=== PATIENT | male | born 1970 | race Caucasian/White ===

== ENCOUNTER → 2022-05-01 09:15 | Outpatient (BNVA) | payer OTHER, SELFPAY | PROVIDERS: Visit Provider Physician Assistant | DX: M77.12 Lateral epicondylitis, left elbow (principal) | CPT/HCPCS: 20551; 99202; J1020 ==

== ENCOUNTER 2023-03-04 14:09 | Outpatient (REF) | payer OTHER, SELFPAY ==
[2023-03-04 17:08] LABS: MANUAL DIFF FLAG NO
[2023-03-04 17:17] LABS: Basophils Percent Auto 0.6 % (0-2); Eosinophils Absolute Auto 0.1 X10*3/uL (0.0-0.4); Hematocrit 42.3 % (42.0-52.0); Hemoglobin 13.3 g/dl (14.0-18.0); Imm Gran Abs Auto 0.01 X10*3/uL (0.00-0.03); Imm Gran Pct Auto 0.1 % (0.0-0.4); Lymphocytes Absolute Auto 1.9 X10*3/uL (1.2-4.9); Lymphocytes Percent Auto 26.5 % (20-40); Mean Corpuscular HGB Conc 31.4 g/dl (31.0-36.0); Mean Corpuscular Hemoglobin 27.8 pg (27.0-33.0); Mean Corpuscular Volume 88.5 fL (80.0-98.0); Mean Platelet Volume 11.1 fL (9.4-12.4); Monocytes Absolute Auto 0.4 X10*3/uL (0.1-1.2); Monocytes Percent Auto 6.1 % (2-11); Neutrophils Absolute Auto 4.7 x10*3/uL (2.0-8.3); Neutrophils Percent Auto 65.7 % (45-73); Platelet Count 224 X10*3/uL (160-400); Red Blood Count 4.78 X10*6/uL (4.60-5.80); Red Cell Distribution Width 11.9 % (11.0-16.0); White Blood Count 7.2 X10*3/uL (4.8-10.8)
[2023-03-04 17:19] LABS: C Reactive Protein < 0.10 mg/dL (< or = 0.50)
[2023-03-04 17:21] LABS: Rheumatoid Factor < 13.0 IU/mL (<15.0)
[2023-03-04 18:01] LABS: Erythrocyte Sedimentation Rate 2 MM/HR (0-15)
== END 2023-03-04 14:10 | disposition home or self-care (01) ==
LOC: HO.CHCLDS 14:09
PROVIDERS: Visit Provider Pediatrics
DX: M25.562 Pain in left knee (principal)
CPT/HCPCS: 36415; 85025; 85652; 86140; 86431

== ENCOUNTER 2023-08-09 09:48 | Outpatient (REF) | payer MEDICARE, SELFPAY ==
[2023-08-09 14:41] LABS: Iron 82 mcg/dL (45-160); Percent Iron Saturation 28 % (15-50); Total Iron Binding Capacity 291 mcg/dL (228-428); Unsaturated Iron Binding 209 ug/dL
[2023-08-09 14:49] LABS: Ferritin 79 ng/mL (20-250)
[2023-08-12 11:04] LABS: Follicle Stimulating Hormone 73.2 mIU/mL (1.4-12.8); Prolactin Undiluted 10.2 ng/mL (2.0-18.0)
[2023-08-13 16:12] LABS: Testosterone, Total 316 ng/dL (250-1100)
== END 2023-08-09 09:49 | disposition home or self-care (01) ==
LOC: HO.CHCLDS 09:48
PROVIDERS: Visit Provider Pediatrics
DX: E29.1 Testicular hypofunction (principal)
CPT/HCPCS: 36415; 82728; 83001; 83540; 84146; 84403

== ENCOUNTER 2024-03-16 10:04 | Outpatient (REF) | payer OTHER, SELFPAY | END 2024-03-16 10:05 | disposition home or self-care (01) | LOC: HO.HOSX 10:04 | PROVIDERS: Visit Provider Physician Assistant | DX: Z13.89 Encounter for screening for other disorder (principal) ==

== ENCOUNTER 2024-03-17 08:44 | Outpatient (REF) | payer OTHER, SELFPAY ==
--- OUTSIDE RECORDS SUMMARY | 2024-03-20 08:52 | XMS_ITS | Data Portability ---
Author Organization [place] - [employer] Address [address] [place] [address] Assessment No assessment recorded. Plan of Treatment [...] Not available Not available Not available 02/01/2024 05668 05 SNOMED Not Available [facility] - production [...] Diagnosis/Indication Diagnosis SNOMED-CT Code Diagnosis ICD10 Code [id number] Juan Pierce MD Main - [address] [address] 04/16/2023 14:08:31 04/19/2023 17:27:04 Pain of left knee joint [id number] 46397 M25.562 Health Concerns Section Related Observation LastModified by Organization Detai ls LastModified Time None Recorded Concern Status LastModified by Organization Details LastModified Time None Recorded Advance Directives Directive None Recorded Payers Encounter Date Sequence Insurance Name Policy Number Policy Rivas Covered Member ID Rivas Member ID Guarantor Name 04/16/2023 1 [facility] - DOS ON OR AFTER 2022 - DUAL ELIGIBLE - RETIREMENT OPTIONS AND ONE CARE (MEDICARE REPLACEMENT/ADV ANTAGE - HMO) Terry Menjivar [id number] Terry Menjivar Notes Date Note Type Note Provider Name and Address Organization Details Recorded Time 04/16/2023 text/html HPI: Asthma, GERD,underweight osteoarthritis. .................. .................. .................. .................. .................. .................. .................. ............... [facility] Nurse Triage Notes (Jaci Fonseca): Comments: No further information needed to process visit. .................. .................. .................. .................. .................. .................. .................. ............... Project Administrative Assistant Note From Salty Ly: Left knee pain [...] ............... Disposition: Fulfilled Juan Pierce MD [address] [facility],[address], [place], [address], ESTHELA CAMERON 04/16/2023 14:53:34
== END 2024-03-17 08:45 | disposition home or self-care (01) ==
LOC: HO.HOSX 08:44
PROVIDERS: Visit Provider Physician Assistant
DX: M25.569 Pain in unspecified knee (principal); M25.662 Stiffness of left knee, not elsewhere classified; M17.12 Unilateral primary osteoarthritis, left knee
CPT/HCPCS: 73560; 73562; 99212

== ENCOUNTER 2024-03-17 09:12 | Outpatient (AMB) | payer OTHER, SELFPAY ==
--- OUTSIDE RECORDS SUMMARY | 2024-03-17 09:16 | XMS_ITS | Data Portability ---
Author Organization [place] - [employer] [place] [employer] ([email or web address]) Address [address] [place] [address] Assessment No assessment recorded. Plan of Treatment Reminders Order Date Submit Date Provider Last Modified By Organization Details Last Modified Time Details Appointments None recorded. Lab None recorded. Referral None recorded. Procedures None recorded. Surgeries None recorded. Imaging None recorded. Medication Orders ketorolac 15 mg/mL injection solution 2023 024 pjansson Not available 4 14:19:10 Patient TargetsNo targets recorded. Patient InstructionsNo instructions recorded. Reason for Referral None Reported. Medical Equipment None Reported. Allergies Allergen ID Allergen Name Allergen Category Reaction Reaction Severity Criticality Documentation Date Start Date Code Code System Note Provider Name and Address Organization Details Recorded Time 8083 ciproflox acin medicatio n Not available Not available Not available 02/01/2024 2551 RxNorm Not Available [facility] - production 4 03:41:50 8084 Medicinal product containin g penicilli n and acting as antibacte rial agent (product) medicatio n Not available Not available Not available 02/01/2024 22456 05 SNOMED Not Available [facility] - production 4 03:41:50 8085 aspirin medicatio n Not available Not available Not available 02/01/2024 1191 RxNorm Not Available [facility] - production 4 03:41:50 Medications Name Sig Start Date Stop Date Status Note LastModified by Organization Details LastModified Time medbox status USE DIRECTED active Not Available Not Available No t Available ketorolac 15 mg/mL injection solution Inject 1 mL by intramuscul ar route. 2023 active Not Available Not Available Not Avai lable prednisone 10 mg tablet TAKE 4 TABLETS BY MOUTH ONCE DAILY active Not Available Not Available No t Available albuterol sulfate 2.5 mg/3 mL (0.083 %) solution for nebulization INHALE THE CONTENT OF 1 VIAL (3mls) VIA nebulizer EVERY 6 HOURS NEEDED FOR SHORTNESS OF BREATH OR FOR WHEEZING active Not Available Not Available No t Available cefpodoxime 100 mg tablet TAKE 1 TABLET BY MOUTH TONIGHT (08/07) AT 9PM, THEN TOMORROW (08/08) TAKE 1 TABLET AT 9AM AND 1 TABLET AT 9PM. MAY TAKE WITH YOGURT TO LESSEN STOMACH UPSET active Not Available Not Available No t Available tizanidine 4 mg tablet TAKE 1 TABLET BY MOUTH EVERY 8 HOURS NEEDED FOR SPASMS active Not Available Not Available No t Available meloxicam 15 mg tablet TAKE 1 TABLET BY MOUTH ONCE DAILY NEEDED FOR PAIN take with food active Not Available Not Available No t Available alendronate 70 mg tablet TAKE ONE TABLET ON ONCE WEEKLY WEDNESDAY MORNING (TAKE 1 TABLET ONCE A WEEK WITH 6 TO 8 OZ OF WATER 30 MINUTES BEFORE FIRST FOOD OF THE DAY. DO NOT LIE DOWN FOR 30 MINUTES.) active Not Available Not Available No t Available tramadol 50 mg tablet TAKE ONE TABLET AT BEDTIME active Not Available Not Available No t Available acetaminophe n ER 650 mg tablet,exten ded release TAKE ONE TABLET EVERY 8 HOURS NEEDED MILD PAIN active Not Available Not Available No t Available calcium 600 mg (as calcium carbonate 1,500 mg) tablet TAKE ONE TABLET DAILY AT NOON active Not Available Not Available No t Available methocarbamo l 750 mg tablet TAKE ONE TABLET FOUR TIMES DAILY active Not Available Not Available Not Available Banophen 25 mg tablet TAKE ONE TABLET BY MOUTH EVERY 8 HOURS NEEDED FOR ITCHING OR ALLERGIES active Not Available Not Available No t Available omeprazole 20 mg capsule,shyann yed release TAKE ONE CAPSULE IN THE MORNING AND EVENING BEFORE MEALS active Not Available Not Available No t Available montelukast 10 mg tablet TAKE 1 TABLET BY MOUTH ONCE DAILY IN THE EVENING active Not Available Not Available Not Available epinephrine 0.3 mg/0.3 mL injection, auto-injecto r INJECT INTRAMUSCUL SUNNY DIRECTED ON PACKAGE active Not Available Not Available No t Available albuterol sulfate HFA 90 mcg/actuatio n aerosol inhaler INHALE TWO PUFFS BY MOUTH 4 (FOUR) TIMES DAILY NEEDED FOR WHEEZING active Not Available Not Available No t Available Vitamin D3 25 mcg (1,000 unit) tablet TAKE 1 TABLET BY MOUTH ONCE DAILY active Not Available Not Available No t Available Breo Ellipta 200 mcg-25 mcg/dose powder for inhalation INHALE 1 PUFF BY MOUTH ONCE DAILY active Not Available Not Available No t Available Spiriva Respimat 1.25 mcg/actuatio n solution for inhalation INHALE TWO PUFFS BY MOUTH ONCE DAILY active Not Available Not Available No t Available Vitals Date Recorded Respiratory rate Oxygen saturation Oxygen saturation in Arterial blood by Pulse oximetry Body temperature Heart rate Systolic blood pressure Diastolic blood pressure Provider Name and Address Organization Details Last Updated DateTime 4 18 /min 96 % 96 % 98.4 [degF] 70 /min 144 mm[Hg] 80 mm[Hg] Not Available [facility] - production 4 14:08:33 Social History None recorded. Functional Status None recorded. Mental Status None recorded. Family History Nothing Reported. Medical History No medical history recorded. Past Encounters Encounter ID Performer Location Encounter Start Date Encounter Closed Date Diagnosis/Indication Diagnosis SNOMED-CT Code Diagnosis ICD10 Code [id number] Juan Pierce MD Main - [address] [address] 04/16/2023 14:08:31 04/19/2023 17:27:04 Pain of left knee joint [id number] 70621 M25.562 Health Concerns Section Related Observation LastModified by Organization Detai ls LastModified Time None Recorded Concern Status LastModified by Organization Details LastModified Time None Recorded Advance Directives Directive None Recorded Payers Encounter Date Sequence Insurance Name Policy Number Policy Rivas Covered Member ID Rivas Member ID Guarantor Name 04/16/2023 1 [facility] - DOS ON OR AFTER 2022 - DUAL ELIGIBLE - [employer] OPTIONS AND ONE CARE (MEDICARE REPLACEMENT/ADV ANTAGE - HMO) Terry Menjivar [id number] Terry Menjivar Notes Date Note Type Note Provider Name and Address Organization Details Recorded Time 04/16/2023 text/html HPI: Asthma, GERD,underweight osteoarthritis. .................. .................. .................. .................. .................. .................. .................. ............... [facility] Nurse Triage Notes (Jaci Fonseca): Comments: No further information needed to process visit. .................. .................. .................. .................. .................. .................. .................. ............... Surgery Scheduling Coordinator Note From Salty Ly: Left knee pain for about 2-3 months ago, without trauma or known cause. No edema noted, pain is localize to the left knee and does not radiate. No redness, edema, or discoloring noted. Ice compressions only help minimal with pain. Pt describes the pain as a burning hot pain, again, does not feel warm to the touch. Pt has full movement of the knee, able to extend to 180 and flex below 90 degrees. Pt is slow to move the knee, and does seem to cause a lot of pain with movement and without. Pain worsens at night. Tylenol last dose was yesterday night, 500mg. Meloxicam was yesterday without relief, and no ibuprophen has been taken (gets stomach pain from ). Pt does have a PCP, but did not Rx anything for the pain. MD consult agreed with 15mg of Toradol, IM. Instructed Pt to not take NSAIDs, i.e. ibuprofen or his Meloxicam, for the remainder of today. Advised heat and or cold. Discussed how to properly use ice, and never directly on the skin. Discussed red flags with pt and family. Advised to seek orthopedic consult. Daughter making an appointment. .................. .................. .................. .................. .................. .................. .................. ............... Disposition: Fulfilled Juan Pierce MD [address] [facility],[address], [place], [address], ESTHELA CAMERON 04/16/2023 14:53:34
--- NOTE | 2024-03-17 09:22 | MHC.OFFVIS ---
Intake Visit Reasons: New prob- Left knee pain Intake Note: Terry is a 53 year old male who presents today for a evaluation of his left knee pain. Pt denies any previous injury,treatment, or Surgery. Patient reports ongoing/ off and on pain for about 3-4 years. He states that his pain is on the back side of his knee and aorund his kneecap and the pain travels down. Patient states that his pain is worse when he is walking. Pt states he hears cracking in his knee when he walks. Pt has tried OTC medications,ice, heat, and lidocaine patches with no relief. Classics Professor Required: Yes Classics Professor Language: Medical Case Manager Services: Classics Professor Present Classics Professor Name: Josh ([id number]) Allergies aspirin Allergy (Intermediate, Verified 03/17/24 09:22) Rash Penicillins Allergy (Intermediate, Verified 03/17/24 09:22) Rash HPI HPI New prob- Left knee pain: Details: 53-year-old [id number]-zqysnwnp male, who is Belgian-speaking, presents in the office today for an evaluation of left knee pain. I last saw the patient in the office on 05/01/23 for evaluation of constant left elbow pain. The patient was seen by Dr. Astrid Moeller on 02/02/24 for chronic left knee pain. The patient described his pain as aching, stabbing, and shooting pain. Pain aggravates with movement, palpation, and weight bearing. He has tried a strong knee brace, diclofenac gel, Tylenol PRN, icing, and rest without any improvement. He has also received a diclofenac injection in the past. Denies any injury in the left knee. He also consulted [facility] and had an ultrasound done of the lower extremity to rule out DVT. He also had an MRI of the left knee done in the past, which revealed arthritic changes and a popliteal cyst. He was prescribed acetaminophen-codeine 300-30 mg PO, one tablet Q6H PRN, and topical 1% diclofenac sodium gel for pain relief. He was recommended rest, icing, and bracing and was referred to [facility] for further evaluation. While in the office today, the patient presented wearing a hinge knee brace. He reports intermittent left knee pain that has been ongoing for 3-4 years. He specifies his pain on the back of his left knee, around his knee cap. He also mentions that the pain radiates down to his left lower extremity. Pain worsens with ambulation and he notices a cracking sound in his knee felt with ambulation. He denies any previous injury, treatment or surgery to the left knee. He has tried OTC medication, ice, heat and lidocaine patches with no relief. ON LICENSE OF [facility] Medical History (Updated 03/17/24 @ 09:53 by Carmelita Enciso PA-C) History of high cholesterol Social History (Updated 05/01/22 @ 09:26 by Jose Carlos Moffett) Alcohol intake: never Patient Tobacco Use Status: Never used Tobacco Current occupational status: disabled Current occupation: right hand dominant Review of Systems Const All systems reviewed & are unremarkable except as noted in HPI and below Physical Exam Neuro Gait exam (Neuro): Antalgic gait present Extrem Other: Left knee: Normal to inspection. No ecchymosis, erythema, or edema. Range of motion is 0-80 degrees. Minimal tenderness to medial and lateral joint lines. Extreme tenderness to palpation of ap lateral fascia. Unable to assess Garret?s and anterior drawer test due to patient?s guarding and pain. Assessment & Plan Assessment & Plan (1) Stiffness of left knee: Code(s): M25.662 - Stiffness of left knee, not elsewhere classified Category: Medical (2) Osteoarthritis of left knee: Code(s): M17.12 - Unilateral primary osteoarthritis, left knee Category: Medical Plan Mr. Menjivar is a 53-year-old [id number] male, who is Belgian-speaking, presents in the office today for an evaluation of left knee pain. I last saw the patient in the office on 05/01/23 for evaluation of constant left elbow pain. The patient was seen by Dr. Astrid Moeller on 02/02/24 for chronic left knee pain. The patient described his pain as aching, stabbing, and shooting pain. Pain aggravates with movement, palpation, and weight bearing. He has tried a strong knee brace, diclofenac gel, Tylenol PRN, icing, and rest without any improvement. He has also received a diclofenac injection in the past. Denies any injury in the left knee. He also consulted [facility] and had an ultrasound done of the lower extremity to rule out DVT. He also had an MRI of the left knee done in the past, which revealed arthritic changes and a popliteal cyst. He was prescribed acetaminophen-codeine 300-30 mg PO, one tablet Q6H PRN, and topical 1% diclofenac sodium gel for pain relief. He was recommended rest, icing, and bracing and was referred to [facility] for further evaluation. While in the office today, the patient presented wearing a hinge knee brace. He reports intermittent left knee pain that has been ongoing for 3-4 years. He specifies his pain on the back of his left knee, around his knee cap. He also mentions that the pain radiates down to his left lower extremity. Pain worsens with ambulation and he notices a cracking sound in his knee felt with ambulation. He denies any previous injury, treatment or surgery to the left knee. He has tried OTC medication, ice, heat and lidocaine patches with no relief. The patient was referred to physical therapy today. I stressed the importance of regaining full motion. I discussed the role of cortisone injection; however, the patient would like to hold off at this time. He presented wearing a hinge knee brace today. I advised him to discontinue wearing the knee brace to avoid any restriction in his range of motion. He uses a walker or cane at home. I recommended him to use the walker or cane all the time, especially outside, while leaving the house for safety. Follow-up will be in 6 weeks, or sooner if needed. X-rays of the left knee, which were obtained while in the office today and were reviewed by me, Carmelita Enciso PA-C, revealed: Evidence of degenerative changes. No acute fracture or dislocation. Orders: Orders XR knee LT 3V Today M25.569 - Pain in unspecified knee PT Evaluation and Treatment Today M17.12 - Unilateral primary osteoarthritis, left knee, M25.662 - Stiffness of left knee, not elsewhere classified XR knee RT 1V Today M25.569 - Pain in unspecified knee Patient Instructions: Scribed by Faviola Orr, biomedical repair technician, for Carmelita Enciso PA-C on 03/17/24 at 10:17 am EST. Coding Level of Care Code New Pt Level 3 (05975) Diagnoses Stiffness of left knee M25.662 Osteoarthritis of left knee M17.12
== END 2024-03-17 09:48 | disposition home or self-care (01) ==
PROVIDERS: Visit Provider Physician Assistant
DX: M17.12 Unilateral primary osteoarthritis, left knee (principal); M25.662 Stiffness of left knee, not elsewhere classified
CPT/HCPCS: 99213

== ENCOUNTER → 2024-04-28 12:55 | Outpatient (BNVA) | payer OTHER, SELFPAY | PROVIDERS: Visit Provider Physician Assistant | DX: M17.12 Unilateral primary osteoarthritis, left knee (principal); M25.662 Stiffness of left knee, not elsewhere classified | CPT/HCPCS: 99212 ==

== ENCOUNTER 2024-05-29 12:57 | Outpatient (RCR) | payer OTHER, SELFPAY ==
--- NOTE | 2024-05-01 12:01 | MHC.PT.EP ---
[facility] [place] Office [place] Office [place] Office [address] Yumiko Vargas [address] [phone] F: [phone] F: [phone] F: [phone] F: [phone] Physical Therapy Plan of Care Date of Evaluation: 05/01/24 Date of Surgery: Diagnosis: STIFFNESS OF LEFT KNEE- PRIMARY OA Lt KNEE Assessment: 53 YO MALE REF TO PT W 3 MONTH H/O Lt KNEE PAIN AND STIFFNESS- HE DENIES TRAUMA OR LIFESTYLE CHANGES. HE IS UNEMPLOYED AND RESIDES W HIS IN AN APT AND LEADS A SEDENTARY LIFESTYLE- HE IS LIMITED W STANDING, KNEELING AT [facility], INCR AMB-> ALTERED GAIT MEC, LIMITED W STAIR NAVIGATION AND HE TENDS TO AVOID Wt BEARING THRU Lt LE W SIT<-> STAND TRANSFERS DUE TO Lt KNEE SXS AND PAIN. OBJECTIVELY, THE Pt HAS LIMITED FLEXIB IN HIS Lt HIP FLEXORS/ QUAD/ CALF MM; DECR STRENGTH IN Lt LE, AROM DEFICITS (TERMINAL EXT)IN Lt KNEE, TIGHT PF MOB, (-) INSTABILITY Lt LE, AND PAIN RATED AT 10/10 IN HIS LEFT KNEE. THE Pt DEFERRED CORTISONE INJECTION AT [facility], PREFERRED TO TRIAL PT FIRST. Frequency and Duration: The patient will be seen 2x WK x 4 WKS Short Term Goals: DECR Lt KNEE PAIN TO 2-3/10 INITIATE HEP IMPROVE AROM Lt KNEE-> FULL TERMINAL EXT INCR Lt PATELLA MOB/ LATERAL SOFT TISSUE MOBILITY Climate Change Risk Assessor Goals: Pt INDEP W HEP AND SELF SX MGMT Pt RESUME REG ADLs AND INCR EXER / ACTIVITY ALEX , IMPROVE LEFI SCORE (AT EVAL 21) Pt DEMON EFFICIENT GAIT MECHANICS ON LEVEL GROUND AND STAIRS; WFL FUNCTIONAL SQUAT [facility] Lt LE STRENGTH IMPROVED BY 1/2 GRADE Treatment Plan: Modalities to reduce pain, spasms and effusion. Manual therapy to restore motion and function. Therapeutic exercise to improve strength and flexibility. Neuromuscular re-education for posture and balance. Therapeutic activities to return to functional activities of daily living. Electronically signed by: LARON ANGEL,PT Please sign and return to therapist. Thank you for your referral.
--- NOTE | 2024-06-14 11:26 | MHC.PT.DC ---
[facility] [place] Office [place] Office [place] Office [address] Yumiko Vargas [address] [phone] F: [phone] F: [phone] F: [phone] F: [phone] Physical Therapy Discharge Report Diagnosis: STIFFNESS OF LEFT KNEE- PRIMARY OA Lt KNEE Date of Surgery: Date of Evaluation: 05/25/24 Date of Discharge: 06/14/24 Treatments to Date: 7 Cancellations to Date: 2 No Shows to Date: Discharge Status: Improved Function Independent with HEP Patient Elected to Stop Discharge Summary: MUNIR MET HIS Lt KNEE ROM GOALS (0*-138*). HIS HEP ADDRESSES STRENGTH AND STAB W PROGR EXER- WE ED AND ADDRESSED THE IMPORTANCE OF INCORPORATING HIP HINGE COMPONENT TO REDUCE ANT KNEE STRESS. MUNIR LAST ATTENDED PT ON 05/29/24 -> A FORMAL RE-ASSESSMENT WAS NOT PERF, BUT, HE DID DISPLAY MORE EFFICIENT GAIT MECHANICS AND FUNCTIONAL MOBILITY. Electronically signed by: LARON ANGEL,PT Please sign and return to therapist. Thank you for your referral.
== END 2024-06-14 11:27 | disposition home or self-care (01) ==
LOC: HO.PT 12:57
PROVIDERS: PCP Pediatrics; Visit Provider Physician Assistant
DX: M25.662 Stiffness of left knee, not elsewhere classified (principal); M17.12 Unilateral primary osteoarthritis, left knee
CPT/HCPCS: 97110; 97112; 97162

== ENCOUNTER 2025-03-22 09:59 | Outpatient (REF) | payer OTHER, SELFPAY ==
--- OUTSIDE RECORDS SUMMARY | 2025-03-22 12:16 | XMS_ITS | Encounter Summary ---
Author Organization [employer] Address [address] [place] [address] [address] [place] [address] Care Team Providers Care Gage Maker Name Role Phone Astrid Moeller MD Primary Care Provider [phone] Encounter Details Date Type Department Care Team ([facility] st Contact Info) Description 03/18/2022 Abstract [facility] [address] [place] [address] ProviderChaya MD Social History Tobacco Use Types Packs/Day Years Used Date Smoking Tobacco: Never Passive Smoke Exposure: Never Smokeless Tobacco: Never Alcohol Use Standard Drinks/Week Comments Never 0 (1 standard drink = 0.6 oz pur e alcohol) Sex and Gender Information Value Date Recorded Sex Assigned at Male 02/02/2022 10:39 AM EDT Legal Sex Male 10:39 AM EDT Gender Identity Male 02/02/2022 10:39 AM EDT Sexual Orientation Straight 02/02/2022 10 :39 AM EDT COVID-19 Exposure Response Date Recorded In the last 10 days, have yo u been in contact with someone who was confirmed or suspected to have Coronavirus/COVID-19? Yes 03/06/2022 1:18 PM EST documented as of this encounter Plan of Treatment Not on file documented as of this encounter Visit Diagnoses Not on filedocumented in this encounter Care Teams Gage Maker Relationship Specialty Start Date End Date Astrid Moeller MD [address] [place] [address] PCP - General Internal Medicine 03/06/22 documented as of this encounter
--- OUTSIDE RECORDS SUMMARY | 2025-03-22 12:16 | XMS_ITS | Clinical Summary ---
Author Organization [employer] Address [address] [facility] 7t [place] [address] Care Team Providers Care Horse Wrangler Name Role Phone Astrid Moeller MD Primary Care Provider [phone] Allergies Active Allergy Reactions Criticality Noted Date Comments Aspirin Hives Low 12/04/2021 Ciprofloxacin-Hydrocortisone 022 palpitations, tired, felt sick Penicillin G 08/25/2022 Other reaction(s): throat swelling Penicillin V Hives Low 03/06/2022 Penicillins 12/04/2021 Medications * This document contains information received from the source organization and may not represent a complete record from that organization. Spiriva Respimat 1.25 MCG/ACT inhaler INHALE TWO PUFFS BY MOUTH ONCE DAILY 07/18/19 23 Active EPINEPHrine (Symjepi) 0.3 MG/0.3ML injection Inject 0.3 mL (0.3 mg) into the shoulder, thigh, or buttocks 1 (one) time for 1 dose. 1 each 11/26/19 23 Active Fluticasone Furoate-Vilant berna 200-25 MCG/ACT aerosol powder Inhale 1 puff in the morning. 1 each 12/15/19 23 Active testosterone (Androderm) 2 MG/24HR Apply 1 patch topically. 06/06/19 22 Active calcium carbonate 1500 (600 Ca) MG tablet TAKE ONE TABLET DAILY AT NOON 30 tablet 12/02/19 24 Active alendronate (Fosamax) 70 MG tablet TAKE ONE TABLET ON ONCE WEEKLY WEDNESDAY MORNING (TAKE 1 TABLET ONCE A WEEK WITH 6 TO 8 OZ OF WATER 30 MINUTES BEFORE FIRST FOOD OF THE DAY. DO NOT LIE DOWN FOR 30 MINUTES.) 4 tablet 11 12/02/19 24 Active cholecalcifero l (Vitamin D-3) 25 MCG tablet TAKE ONE TABLET DAILY AT NOON 30 tablet 11 12/02/19 24 Active omeprazole (PriLOSEC) [address] capsule TAKE ONE CAPSULE DAILY AT NOON 30 capsule 2 12/27/19 24 Active Diclofenac Sodium 1 % gelIndications :Popliteal cyst, left Apply tid to affected reas 100 g 3 02/02/20 24 Active montelukast (Singulair) 10 MG tablet TAKE ONE TABLET EVERY NIGHT AT BEDTIME 30 tablet 11 02/23/2025 9:20 AM EST 10/10/19 25 Active Ventolin HFA 108 (90 Base) MCG/ACT inhaler INHALE 1 PUFF EVERY 6 HOURS NEEDED FOR WHEEZING 18 g 1 02/23/2025 9:20 AM EST 11/28/19 25 Active albuterol (2.5 MG/3ML) 0.083% nebulizer solution USE ONE AMPULE USING A NEBULIZER EVERY 6 HOURS NEEDED FOR SHORTNESS OF BREATH 90 mL 1 02/27/20 25 Active albuterol (2.5 MG/3ML) 0.083% nebulizer solution Inhale the content of 1 vial via nebulizer every 6 hours as needed for shortness of breath 90 mL 1 02/23/2025 9:20 AM EST 10/10/19 25 025 Discontinued Hospital, Clinic, or Other Facility Administered Medication Ordered Dose Route Frequency Start Date End Date Status predniSONE (Deltasone) tablet 20 mgIndications:Moderate asthma with exacerbation, unspecified whether persistent 20 mg PO Daily 08/03/2022 Active Active Problems Problem Noted Date Diagnosed Date Popliteal cyst, left 02/02/2024 Other osteoporosis without current pathological fracture 08/25/2022 Hospital discharge follow-up 08/13/2022 Assessment & Plan (08/13/2022 10:41 PM EDT): Patient was admitted at [facility] from 08/03/22 to 08/07/22 for stridor and lingual tonsillitis, which requeired mechanical ventilation for airway protection. On examination denied fever/chills, nausea/vominting, sore throat, difficulty swallowing. He completed oral antibiotics. Will refer to ENT for evalution. Hx of tonsillitis 08/13/2022 BMI less than 19,adult 08/11/2022 History of disease 08/11/2022 History of kidney stones 08/11/2022 Osteopenia of lumbar spine 03/25/2022 Epidermoid cyst of skin 03/25/2022 Anxiety 03/06/2022 Asthma 03/06/2022 Complex regional pain syndrome 03/06/2022 Overview (03/06/2022): EMG/NCS (2010): mild right ulnar and right median neuropathy. MRI +/- RUE (2010): normal. ( Neuro consult (2011): suspect complex regional pain syndrome Lateral epicondylitis of left elbow 03/06/2022 Prediabetes 03/06/2022 Underweight 03/06/2022 Hypogonadism in male 03/06/2022 Overview (03/06/2022): Primary hypogonadism. Unclear etiology. Endocrine eval 05/2019. Gastroesophageal reflux disease 03/06/2022 Dysphagia 03/06/2022 Overview (03/06/2022): EGD 11/2015 normal Viral upper respiratory tract infection 03/06/20 Assessment & Plan (03/06/2022 2:09 PM EST): Recommended supportive care. Normal lung exam. Will send lidocaine to coat throat and decongestant. Will send swab and f/u with results Encounters Date Type Department Care Team Description 03/22/2025 Telephone [facility] [address], [place] [phone] Amalia German, RN 03/12/2025 Telephone [facility] [address] [place] [address] Astrid Moeller MD Durable Medical Equipment 02/26/2025 Refill [facility] [address] [place], [place] [phone] Astrid Moeller MD 12/21/2024 Results Follow-Up [facility] [address] [place] [address] Astrid Moeller MD MR Lumbar Spine w/o Contrast 12/21/2024 Orders Only [facility] [address] [place] [address] Astrid Moeller MD Spinal stenosis of lumbar region with neurogenic claudication (Primary Dx) from Last 3 Months Immunizations Immunization Administration Dates Next Due Influenza, IIV3, injectable 03/14/2014, 3,03/10/2012 Pfizer Covid-19 Vaccine 12+ 04/26/2024,0 10/17/2021,04/28/2021,09/13/2020, Pneumococcal Conjugate PCV 20 12/17/2022 Tdap 03/06/2015 Zoster, Recombinant 06/21/2023,12/14/2022 Social History Tobacco Use Types Packs/Day Years Used Date Smoking Tobacco: Never Passive Smoke Exposure: Never Smokeless Tobacco: Never Tobacco Cessation:Counseling Given: Not Answered Alcohol Use Standard Drinks/Week Comments Never 0 (1 standard drink = 0.6 oz pur e alcohol) Depression Answer Date Recorded Patient Health Questionnaire-9 Score 4 04/26/2024 Patient Health Questionnaire-9 Score 4 04/26/2024 Last PHQ-9: Questionnaire Data Not on file 0 04/26/2024 Housing Stability Answer Date Recorded What is your housing situation today? I have flor freeman 04/17/[address] you li ve. Do you have problems with any of the following? None of the above 04/17/2024 Food Insecurity Answer Date Recorded Within the past 12 months, y ou worried that your food would run out before you got money to buy more: Never True 06/17/2023 Within the past 12 months,th e food you bought just didn't last and you didn't have enough money to get more: Never True Transportation Answer Date Recorded In the past 12 months, has l ack of transportation kept you from medical appts, meetings, work or from getting things needed for daily living? No 02/02/2023 Utilities Answer Date Recorded In the past 12 months, has t he electric, gas, oil or water company threatened to shut off services in your home? No 06/17/2023 Depression Answer Date Recorded Patient Health Questionnaire-2 Score 0 04/26/2024 Internet Access Answer Date Recorded Internet Access Q1 Yes 04/17/2024 Internet Access Q2 Not on file 04/17/2024 Sex and Gender Information Value Date Recorded Sex Assigned at Male 02/02/2022 10:39 AM EDT Legal Sex Male 10:39 AM EDT Gender Identity Male 02/02/2022 10:39 AM EDT Sexual Orientation Straight 02/02/2022 10 :39 AM EDT Last Filed Vital Signs Vital Sign Reading Time Taken Comments Blood Pressure 139/88 12/11/2024 1:00 PM EDT Pulse 66 12/11/2024 1:00 PM EDT Temperature 36.2 C (97.2 F) 12/11/2024 1:00 PM EDT Respiratory Rate 16 12/11/2024 1:00 PM EDT Oxygen Saturation 98% 08/17/2024 1:15 PM EDT Inhaled Oxygen Concentration - - Weight 48.1 kg (106 lb) 12/11/2024 1:00 PM EDT Height 157.5 cm (5' 2 ) 08/17/2024 1:15 PM EDT Body Mass Index 19.39 08/17/2024 1:15 PM EDT Plan of Treatment Health Maintenance Due Date Last Done Comments CT Colonography 1968 FIT DNA/Cologuard 1968 FIT 1968 FOBT 1968 Sigmoidoscopy 1968 Hepatitis B Vaccines (1 of 3 - 19+ 3-dose series) 1987 RSV Patients and Patients Aged 60 years or older (1 - Risk 50-74 years 1-dose series) 2018 Dental Oral Exam 03/01/2023 08/28/2022 Dental Prophylaxis 04/04/2023 10/02/2022 Dental X-Ray: Bitewings 08/30/2023 08/28/2022 COVID-19 Vaccine ( season) 2024 04/26/2024, 10/17/2021, 04/28/2021, Additional history exists Influenza Vaccine (#1) 2024 4, 02/02/2013, 03/10/2012 DTaP/Tdap/Td Vaccines (2 - Td or Tdap) 03/06/2025 03/06/2015 SDOH Screening 04/17/2025 04/17/2024 Depression Screening 04/26/2025 04/26/2024, 04/26/19 25 Diabetes: Hemoglobin A1C 08/17/2025 025, 04/26/2024, 06/24/2023, Additional history exists Dental X-Ray: Full Mouth 08/29/2025 08/28/2022 Alcohol/Substance Use Screening 12/11/2025 12/11/2024 Disability Screening 12/11/2025 12/11/2024 Tobacco Screening 12/11/2025 12/11/2024 Lipid Panel 12/04/2026 12/04/2021 Colonoscopy 12/19/2028 12/19/2018 Colorectal Cancer Screening 12/19/2028 HIV Screening Completed 12/04/2021 Hepatitis C Screening Completed 12/04/2021 Pneumococcal Vaccine: 50+ Years Completed 12/17/2022 Zoster Vaccines Completed 06/21/2023, 12/14/2022 HIB Vaccines Aged Out No longer eligi ble based on patient's age to complete this topic HPV Vaccines Aged Out No longer eligi ble based on patient's age to complete this topic Hepatitis A Vaccines Aged Out No long er eligible based on patient's age to complete this topic IPV Vaccines Aged Out No longer eligi ble based on patient's age to complete this topic Meningococcal B Vaccine Aged Out No l onger eligible based on patient's age to complete this topic Meningococcal Vaccine Aged Out No derrick claudia eligible based on patient's age to complete this topic RSV under 20 months Aged Out No longe r eligible based on patient's age to complete this topic Rotavirus Vaccines Aged Out No longer eligible based on patient's age to complete this topic Goals Goal Patient Goal Type Associated Problems Recent Progress Patient-Stated? Author Help patient manage asthma General No Phylicia Tesfyae, Rusty Note: Take Breo Elipta once daily, every day for maintenance treatment Short-term: Promote adherence to treatment regimen General No Phylicia Tesfaye, Rusty Note: Begin medboxes, return on 12/17/22 for medbox initiation. Immunizations General Yes Phylicia Tesfaye, Rusty Note: Receive all recommended vaccines: Receiving PCV20 on 12/17 and 2nd dose of Shingrix in june 2023 Procedures Procedure Name Priority Date/Time Associated Diagnosis Comments POCT GLYCATED HEMOGLOBIN, TOTAL Routine 08/17/2024 1:39 PM EDT Prediabetes PROPHYLAXIS - ADULT Routine 10/02/2022 1 1:00 AM EDT COMPREHENSIVE ORAL EVALUATION - NEW OR ESTABLISHED PATIENT Routine 08/28/2022 3:00 PM EDT INTRAORAL - COMPLETE SERIES OF RADIOGRAPHIC IMAGES Routine 08/28/2022 2:00 PM EDT ZZZ HISTORICAL HEPATITIS C AB W/REFL TO HCV RNA, QN, PCR Routine 12/04/2021 11:16 AM EDT HIV 1/2 ANTIGEN/ANTIBODY, FOURTH GENERATION W/RFL Routine 12/04/2021 11:16 AM EDT LIPID PANEL, STANDARD Routine 12/04/2021 11:16 AM EDT HM COLONOSCOPY Routine 12/19/2018 from Last 3 Months or Most Recently Relevant to Health Maintenance Results * (ABNORMAL) POCT HGB A1C (08/17/2024 1:39 PM EDT) Pathologist [facility] Hemoglobin A1C 6.1(A) 4.0 - 6.0 % QC Media Lot # [id number] Lot# Expiration Date Blood 08/17/2024 1:39 PM EDT us Astrid Moeller MD POINT OF CARE TEST ENTER/EDIT ORDERABLES Final Result * HEPATITIS C AB W/REFL TO HCV RNA, QN, PCR (12/04/2021 11:16 AM EDT) HEPATITIS C ANTIBODY NON-REACT ANDI NON-REACT ANDI [facility] INDEX 0.09 <1.00 [facility] Comment: HCV antibody was non-reactive. There is no laboratory evidence of HCV infection. In most cases, no further action is required. However, if recent HCV exposure is suspected, a test for HCV RNA (test code 27084) is suggested. For additional information please refer to http://education.[employer]/faq/KJX34k7 (This link is being provided for informational/ educational purposes only.) 12/04/2021 11:1 6 AM EDT us Penny Montez MD HISTORICAL/NON ORDERA BLE LABS Final Result Performing Organization Address [facility] Phone Number [facility] [address] [place] [address], * HIV 1/2 ANTIGEN/ANTIBODY,FOURTH GENERATION W/RFL (12/04/2021 11:16 AM EDT) [facility] HIV-1/2 ANTIGEN AND ANTIBODIES, 4TH GENERATION W/ REFLEX NON-REACT ANDI NON-REACT ANDI [facility] Comment: HIV-1 antigen and HIV-1/HIV-2 antibodies were not detected. There is no laboratory evidence of HIV infection. PLEASE NOTE: This information has been disclosed to you from records whose confidentiality may be protected by state law. If your state requires such protection, then the state law prohibits you from making any further disclosure of the information without the specific written consent of the person to whom it pertains, or as otherwise permitted by law. A general authorization for the release of medical or other information is NOT sufficient for this purpose. For additional information please refer to http://[employer]/faq/ZXV779 (This link is being provided for informational/ educational purposes only.) The performance of this assay has not been clinically validated in patients less than 2 years old. 12/04/2021 11:1 6 AM EDT us Penny Montez MD LAB BLOOD ORDERABLES Final Result Performing Organization Address [facility] Phone Number [facility] [address] [place] [address], * (ABNORMAL) LIPID PANEL, STANDARD (12/04/2021 11:16 AM EDT) [facility] Chol/HDLC Ratio 3.6 <5.0 (calc) [facility] Cholesterol, Total 200(H) <200 mg/dL [facility] HDL Cholesterol 56 > OR = 40 mg/dL [facility] LDL Cholesterol 130(H) mg/dL (calc) [facility] Comment: Reference range: <100 Desirable range <100 mg/dL for primary prevention; <70 mg/dL for patients with CHD or diabetic patients with > or = 2 CHD risk factors. LDL-C is now calculated using the Edyta calculation, which is a validated novel method providing better accuracy than the Friedewald equation in the estimation of LDL-C. Eugene GARCIA et al. ONEYDA. 2013;310(19): 9817-4021 (http://education.[employer].Grandis/faq/LUU511) Non-HDL Cholesterol 144(H) <130 mg/dL (calc) [facility] Comment: For patients with diabetes plus 1 major ASCVD risk factor, treating to a non-HDL-C goal of <100 mg/dL (LDL-C of <70 mg/dL) is considered a therapeutic option. Triglycerides 53 <150 mg/dL [facility] 12/04/2021 11:1 6 AM EDT Penny Montez MD LAB BLOOD ORDERABLES Final Result [facility] [address] * Colonoscopy (12/19/2018) Colonoscopy Normal Normal Narrative Linda Peters - 12/19/2018 Recommended 10 year follow up Historical Provider HEALTH MAINTENANCE Final Result from Last 3 Months or Most Recently Relevant to Health Maintenance Insurance [facility] ONE CARE < 65 DENTAL - [facility] Care Teams Horse Wrangler Relationship Specialty Start Date End Date Astrid Moeller MD [address] [place] [id number] PCP - General Internal Medicine 03/06/22
--- OUTSIDE RECORDS SUMMARY | 2025-03-22 12:16 | XMS_ITS | Encounter Summary ---
Author Organization [employer] Address [address] [facility] [address] [place] [address] Care Team Providers Care Ice Skating Coach Name Role Phone Astrid Moeller MD Primary Care Provider [phone] Encounter Details Date Type Department Care Team (Late st Contact Info) Description 03/22/[address] [facility] [address] [place], [place] [phone] Amalia German, RN [address] [place] [address] Social History Tobacco Use Types Packs/Day Years [...] Orientation Straight 02/02/2022 10 :39 AM EDT documented as of this encounter Miscellaneous Notes * Telephone Encounter - Amalia German RN - 03/22/2025 9:43 AM EST Per provider Dr. Moeller, was requested to enter [facility] lab test for his day program. Pt to have drawn today in the [facility] lab. Pt aware. documented in this encounter Plan of Treatment Scheduled Orders Name Type Priority Associated Diagnoses Orde r Schedule [facility] .TB Lab Routine Encounter for screening for respiratory tuberculosis Expected: 03/22/2025 (Approximate), Expires: 03/22/2026 documented as of this encounter Goals Goal Patient Goal Type Associated Problems Recent Progress Patient-Stated? Author Help patient manage asthma General No Phylicia Tesfaye PharmD Note: Take Breo Elipta once daily, every day for maintenance treatment Short-term: Promote adherence to treatment regimen General No Phylicia Tesfaye PharmD Note: Begin medboxes, return on 12/17/22 for medbox initiation. Immunizations General Yes Phylicia Tesfaye PharmD Note: Receive all recommended vaccines: Receiving PCV20 on 12/17 and 2nd dose of Shingrix in june 2023 documented as of this encounter Visit Diagnoses Diagnosis Encounter for screening for respiratory tuberculosis documented in this encounter Additional Health Concerns Assessment Noted Time PHQ-9 Depression Total Score: 4 04/26/19 25 10:15 AM EST documented as of this encounter Care Teams Ice Skating Coach Relationship Specialty Start Date End Date Astrid Moeller MD [address] [place] [id number] PCP - General Internal Medicine 03/06/22 documented as of this encounter
--- OUTSIDE RECORDS SUMMARY | 2025-03-22 12:16 | XMS_ITS | Continuity of Care Document ---
Author Name [facility], Medical Address [address] [place] [id number] Organization Unknown Address [address] [place] [address] Medications No known medications Problems No known problems
--- OUTSIDE RECORDS SUMMARY | 2025-03-22 12:16 | XMS_ITS | Encounter Summary ---
Author Organization [employer] Address [address] [facility] [address] [place] [address] Care Team Providers Care Polymerization Kettle Operator Name Role Phone Astrid Moeller MD Primary Care Provider [phone] Reason for Visit * Reason Onset Date Comments Nurse Triage 03/03/2023 Encounter Details Date Type Department Care Team ([facility] st Contact Info) Description 03/03/2023 Telephone [facility] [address] [place] [address] Astrid Moeller MD [address] [place] [address] Nurse Triage Social History Tobacco Use Types Packs/Day Years Used Date Smoking Tobacco: Never Passive Smoke Exposure: Never Smokeless Tobacco: Never Alcohol Use Standard Drinks/Week Comments Never 0 (1 standard drink = 0.6 oz pur e alcohol) Depression Answer Date Recorded Patient Health Questionnaire-9 Score 0 08/13/2022 Housing Stability Answer Date Recorded What is your housing situation today? I have housing today, but I am worried about losing housing in the future 01/10/[address] you li ve. Do you have problems with any of the following? Pests such as bugs, ants, or mice 01/10/2023 Food Insecurity Answer Date Recorded Within the past 12 months, y ou worried that your food would run out before you got money to buy more: Sometimes True 2022 Within the past 12 months,th e food you bought just didn't last and you didn't have enough money to get more: Sometimes True 02/02/2023 Transportation Answer Date Recorded In the past 12 months, has l ack of transportation kept you from medical appts, meetings, work or from getting things needed for daily living? No 02/02/2023 Utilities Answer Date Recorded In the past 12 months, has t he electric, gas, oil or water company threatened to shut off services in your home? Yes 01/10/2023 Depression Answer Date Recorded Patient Health Questionnaire-2 Score 0 08/13/2022 Sex and Gender Information Value Date Recorded Sex Assigned at Male 02/02/2022 10:39 AM EDT Legal Sex Male 10:39 AM EDT Gender Identity Male 02/02/2022 10:39 AM EDT Sexual Orientation Straight 02/02/2022 10 :39 AM EDT documented as of this encounter Miscellaneous Notes * Telephone Encounter - Reyna Jackson RN - 03/03/2023 4:45 PM EST Triage call with [employer] [place] [id number] Pt reports left knee pain for more than a week. Pt reports pain with bending of the knee and especially at bed time. Pt denies injury, swelling, redness. Pt can walk a little but, limps due to pain. Pt has tried tylenol/motrin without effect. Apt in [facility] 03/04/23 @ 140pm. Insurance is verified as active prior to booking. Protocol Used: Knee Pain (Adult) Protocol-Based Disposition: See in Office or Video Visit within 3 Days Video visit not offered Positive Triage Questions: * Moderate pain (e.g., symptoms interfere with work or school, limping) and present > 3 days * Patient wants to be seen * All higher-acuity triage questions were negative Care Advice Discussed: * Reassurance and Education - Knee Pain * Pain Medicines * Pain Medicines - Extra Notes and Warnings * Reasons To Call Back - Moderate pain (e.g., limping) lasts more than 3 days - Mild pain lasts more than 7 days - Signs of infection occur (e.g., spreading redness, warmth, fever) - You become worse * Use a Cold Pack for Pain * Use Heat After 48 Hours for Pain * Telephone Encounter - Bryan Moffett - 03/03/2023 3:35 PM EST Symptom: Knee Pain - Not From Injury Outcome: Schedule an urgent appointment (within 1 hour) or talk to a nurse or provider soon Reason: Trouble walking documented in this encounter Plan of Treatment Not on file documented as of this encounter Goals Goal [...] Diagnoses Not on filedocumented in this encounter Additional Health Concerns Assessment Noted Time PHQ-9 Depression Total Score: 0 08/14/19 3:04 PM EDT documented as of this encounter Care Teams Polymerization Kettle Operator Relationship Specialty Start Date End Date Astrid Moeller MD [address] [place] [id number] PCP - General Internal Medicine 03/06/22 documented as of this encounter
--- OUTSIDE RECORDS SUMMARY | 2025-03-22 12:16 | XMS_ITS | Encounter Summary ---
Author Organization [employer] Address [address] [facility] [address] [place] [address] Care Team Providers Care Art Objects Salesperson Name Role Phone Astrid Moeller MD Primary Care Provider [phone] Encounter Details Date Type Department Care Team (Late st Contact Info) Description 02/12/2023 Abstract [facility] MED[facility] [address] [place] [address] Linda Peters Social History Tobacco Use Types Packs/Day Years [...] AM EDT documented as of this encounter Plan of [...] june 2023 documented as of this encounter Procedures Procedure Name Priority Date/Time Associated Diagnosis Comments COLONOSCOPY Routine 12/19/2018 documented in this encounter Results * Colonoscopy (12/19/2018) Colonoscopy Normal Normal Narrative Linda Peters - 12/19/2018 Recommended 10 year follow up Historical Provider HEALTH MAINTENANCE Final Result documented in this encounter Visit Diagnoses Not on filedocumented in this encounter Additional Health Concerns Assessment Noted Time PHQ-9 Depression Total Score: 0 08/14/19 23 3:04 PM EDT documented as of this encounter Care Teams Art Objects Salesperson Relationship Specialty Start Date End Date Astrid Moeller MD [address] [place] [address] PCP - General Internal Medicine 03/06/22 documented as of this encounter
--- OUTSIDE RECORDS SUMMARY | 2025-03-22 12:16 | XMS_ITS | Encounter Summary ---
Author Organization [employer] Address [address] [facility] 7[address] [place] [address] Care Team Providers Care Ultrasonic Cleaner Name Role Phone Astrid Moeller MD Primary Care Provider [phone] Encounter Details Date Type Department Care Team (Late st Contact Info) Description 12/12/2024 Orders Only [facility] [address] [place] [address] ProviderChaya MD Social History Tobacco Use Types [...] your housing situation today? I have flor sing 04/17/[address] you li [...] t he electric, gas, oil or water [employer] threatened to shut off services in your [...] Procedure Name Priority Date/Time Associated Diagnosis Comments CT ABDOMEN PELVIS WO CONTRAST Routine 09/20/2024 12:05 PM EDT documented in this encounter Results * CT Abdomen Pelvis w/o Contrast (09/20/2024 12:05 PM EDT) Anatomical Region Laterality Modality Body, Pelvis, Abdomen Computed T omography us Historical Provider MD HEAD CT PROCEDURES Final R esult documented in this encounter Visit Diagnoses Not on filedocumented in this encounter Additional Health Concerns Assessment Noted Time PHQ-9 Depression Total Score: 4 04/26/19 25 10:15 AM EST documented as of this encounter Care Teams Ultrasonic Cleaner Relationship Specialty Start Date End Date Astrid Moeller MD [address] [place] [id number] PCP - General Internal Medicine 03/06/22 documented as of this encounter
--- OUTSIDE RECORDS SUMMARY | 2025-03-22 12:16 | XMS_ITS | Encounter Summary ---
Author Organization [employer] Address [address] [facility] 7 [place] [address] Care Team Providers Care Staffing Clerk Name Role Phone Astrid Moeller MD Primary Care Provider [phone] Reason for Visit * Reason Onset Date Comments Results 04/16/2023 Encounter Details Date Type Department Care Team ([facility] st Contact Info) Description 04/16/2023 Telephone [facility] [address] [place] [address] Astrid Moeller MD [address] [place] [address] Results Social History Tobacco Use Types Packs/Day Years [...] encounter Miscellaneous Notes * Telephone Encounter - Juan David Motley - 04/16/2023 10:27 AM EST Tc from [place] the patients primary care physician requesting a call back with the results of lab works and x-rays documented in this encounter Plan of Treatment [...] documented as of this encounter Care Teams Staffing Clerk Relationship Specialty Start Date End Date Astrid Moeller MD [address] [place] [address] PCP - General Internal Medicine 03/06/22 documented as of this encounter
--- OUTSIDE RECORDS SUMMARY | 2025-03-22 12:16 | XMS_ITS | Encounter Summary ---
Author Organization [employer] Address [address] [facility] [address] [place] [address] Care Team Providers Care Comb Capper Name Role Phone Astrid Moeller MD Primary Care Provider [phone] Encounter Details Date Type Department Care Team (Late st Contact Info) Description 09/23/2022 Abstract [facility] [employer] [facility] [address] [place] [address] Astrid Moeller MD [address] [place] [address] Social History Tobacco Use Types Packs/Day Years Used Date Smoking Tobacco: Never Passive Smoke Exposure: Never Smokeless Tobacco: Never Alcohol Use Standard Drinks/Week Comments Never 0 (1 standard drink = 0.6 oz pur e alcohol) Depression Answer Date Recorded Patient Health Questionnaire-9 Score 0 08/13/2022 Depression Answer Date Recorded Patient Health Questionnaire-2 [...] was confirmed or suspected to have Coronavirus/COVID-19? No / Unsure 08/28/2022 1:53 PM EDT documented as of this encounter Plan of Treatment Not on file documented as of this encounter Visit Diagnoses Not on filedocumented in this encounter Additional Health Concerns Assessment Noted Time PHQ-9 Depression Total Score: 0 08/14/19 23 3:04 PM EDT documented as of this encounter Care Teams Comb Capper Relationship Specialty Start Date End Date Astrid Moeller MD [address] [place] [id number] PCP - General Internal Medicine 03/06/22 documented as of this encounter
--- OUTSIDE RECORDS SUMMARY | 2025-03-22 12:16 | XMS_ITS | Clinical Summary ---
Author Organization [facility] Address [address] [place] [address] Phone Care Team Providers Care Perch Machine Inspector Name Role Phone Astrid Moeller MD Primary Care Provider [phone] Allergies Active Allergy Reactions Criticality Noted Date Comments Aspirin Hives Low 12/04/2021 Ciprofloxacin-Hydrocortisone 022 palpitations, tired, felt sick Influenza Virus Vaccines 04/14/2024 Other Reaction(s): headache, swollen face Penicillins Hives Low 12/04/2021 Other reaction(s): throat swelling Medications albuterol HFA (PROAIR HFA ; PROVENTIL HFA ; VENTOLIN HFA) 90 mcg/actuation inhaler Inhale 2 puffs by mouth every 4 (four) hours if needed for wheezing. 1 each 04/14/2024 Active Active Problems No known active problems Encounters Date Type Department Care Team Description 01/05/2025 2:20 PM EDT - 01/05/2025 3:28 PM EDT Emergency [facility] [address] [place] [address] Acute myofascial strain of lumbar region, initial encounter (Primary Dx); Lumbar radiculopathy, acute Discharge Disposition: Home or Self Care from Last 3 Months Medical History Medical History Date Comments Asthma Social History Tobacco Use Types Packs/Day Years Used Date Smoking Tobacco: Never Smokeless Tobacco: Never Tobacco Cessation:Counseling Given: Not Answered Sex and Gender Information Value Date Recorded Sex Assigned at Not on file Legal Sex Male 7:02 AM EST Gender Identity Not on file Sexual Orientation Not on file Last Filed Vital Signs Vital Sign Reading Time Taken Comments Blood Pressure 142/92 01/05/2025 1:44 PM EDT Pulse 65 01/05/2025 1:44 PM EDT Temperature 36.6 C (97.9 F) 01/05/2025 1:44 PM EDT Respiratory Rate 20 01/05/2025 1:44 PM EDT Oxygen Saturation 99% 01/05/2025 1:44 PM EDT Inhaled Oxygen Concentration - - Weight 49 kg (108 lb) 01/05/2025 1:44 PM EDT Height 162.6 cm (5' 4 ) 01/05/2025 1:44 PM EDT Body Mass Index 18.54 01/05/2025 1:44 PM EDT Plan of Treatment Health Maintenance Due Date Last Done Comments Colorectal Cancer Screening: Colonoscopy 1968 Hepatitis B Vaccines (1 of 3 - 19+ 3-dose series) 1987 RSV Immunization Adult Patients (1 - Risk 50-74 years 1-dose series) 2018 Hepatitis C Screening 03/06/2022 Medicare Annual Wellness Visit 03/06/2022 Social Influencers of Health Screening 03/06/2022 Depression Screening 04/05/2024 COVID-19 Vaccine ( season) 2024 04/26/2024, 10/17/2021, 04/28/2021, Additional history exists Influenza Vaccine (#1) 2024 4, 02/02/2013, 03/10/2012 DTaP,Tdap,and Td Vaccines (2 - Td or Tdap) 03/06/2025 03/06/2015 Cholesterol Screening (Lipid Panel) 12/04/2026 12/04/2021 HIV Screening Completed 12/04/2021 Pneumococcal Vaccine: 50+ Years [...] on patient's age to complete this topic MMR Vaccines Aged Out No longer eligi ble based on patient's age to complete this topic Meningococcal ACWY Vaccine Aged Out N o longer eligible based on patient's age to complete this topic Meningococcal B Vaccine Aged Out No l onger eligible based on patient's age to complete this topic RSV Immunization Patients Under 20 months Aged Out No longer eligible based on patient's age to complete this topic Varicella Vaccines Aged Out No longer eligible based on patient's age to complete this topic Insurance [facility] MEDICARE Member Subscriber Plan / Payer (Ef fective 2023-Present) Name:TERRY SALGADO Relation to Subscriber:Self Name:Terry Gutierrez Payer ID:[id number] Group ID:[id number] Type:Not on file Address: [facility] [address] [address] Care Teams Perch Machine Inspector Relationship Specialty Start Date End Date Astrid Moeller MD [address] [place] [phone] PCP - General Internal Medicine 01/05/25
--- OUTSIDE RECORDS SUMMARY | 2025-03-22 12:17 | XMS_ITS | Encounter Summary ---
Author Organization [facility] Address [address] [facility] [address] [place] [address] Encounters * CPT with [facility] at [facility] on 2025-03-12 SOAR THROAT FOR TWO WEEKS LITE FEVER DEHYDRATED { reasonForRequest : sore throat , patientReports : Cough, fever greater than 2 days ; History of asthma, increased use of inhaler; Sputum increase ; Cough; Shortness of breath with exertion; Pain with inspiration , denies :[ Increased work ofbreathing/labored with or without fever , Unable to speak in full sentences without di stress , Discoloration of skin -cyanosis , Needs to sleep sitting up, can t catch breath , Shortness of breath in setting of confusion , COPD , COVID Exposure ], chiefComplaints : Sore Throat , pmh : COPD/Asthma, Asthma , allergies : Ciprofloxacin, Penicillins, Aspirin , otherA llergies :null, painAssessment : , visitOutcome : ,&q uot;additionalComments : 54 y.o male complains of Sore Throat\n\nCAll completed with vice president network development\nThe patient has had a sore throat for over two weeks. \nPatient has had a productive cough with white sputum. The patient reports experiencing a fever during the night. The patient reports having body aches no headaches. \nThe patient does have mild shortness of breath and mild pressure in his chest. \nHE does have asthma, has been using nebs and inhalers, has been helped mildly. He does feel he has chest pressure, not pain, and denies radiation of pain. He denies any cardiac issues in the past. He does not have any wheeze. He has a sore throat but denies any white patches. \nHe is taking tylenol flu , with no change. \nPt is talking in full sentences, no audible wheeze. \nHe is noton blood thinners. \nI provided information on the mobile health provider response time and advisedthe patient and/or caregiver to monitor reported signs and symptoms. I discussed the warning signs of when to seek emergency care. } Dispatched to the call address for the male not feeling well. Pt states he has not felt well in about two weeks. He complains of a mild semi productive cough with white sputum, some body aches and chills and a sore throat. He denies n/v/d, abd pain, difficulty breathing or shortness of breath. He has been able to eat and drink to his baseline. He has been taking OTC cold medication with fair effect. He has not spoken to his doctor about this illness yet. Pt was found sitting on living room couch, CAOx4, airway open and patent, breathing non labored, able to speak in full sentences, -JVD, -HEENT, skin PWD with good turgor, mucous membranes pink and moist, throat clear of pustules, abd soft non tender/distended, pupils PERRL, afebrile, lungs CTA, +CMSx4, - edema/swelling. Rapid Covid/Flu/Strept (-) URI Pt was assessed. Rapid tests preformed with results uploaded to Pts portal. C consulted. Red flags discussed. ALL times are approx. ORAL_MEDICATION, EKG, POC_FLU_STREP, COVID_TEST Written by Medical [facility] on 2025-03-12
== END 2025-03-22 10:00 | disposition home or self-care (01) ==
LOC: HO.CHCLDS 09:59
PROVIDERS: Visit Provider Pediatrics
DX: Z11.1 Encounter for screening for respiratory tuberculosis (principal)
CPT/HCPCS: 36415; 86481